=== PATIENT | male | born 1965 | race Caucasian/White ===

== ENCOUNTER 2021-01-28 07:56 | Emergency (ER) | payer BC ==
[~2021-01-28] VITALS: Ht 170.2 cm; Wt 65.8 kg
[~2021-01-28 07:56] MED LIST: ADVAIR HFA115 MCG/21 INH; NEXIUM40 MG PO; SINGULAIR 10 MG10 M1 PO
[2021-01-28] MEDS ORDERED: LISINOPRIL10 MG PO (08:55)
[2021-01-28 08:56] LABS: URINE BILIRUBIN NEGATIVE (Negative); URINE BLOOD NEGATIVE (Negative); URINE CLARITY CLEAR; URINE COLOR YELLOW; URINE GLUCOSE-RANDOM* NEGATIVE (Negative); URINE KETONES NEGATIVE (Negative); URINE LEUKOCYTES-REFLEX NEGATIVE (Negative); URINE NITRITE-REFLEX NEGATIVE (Negative); URINE PROTEIN (DIPSTICK) NEGATIVE (Negative); URINE SPECIFIC GRAVITY 1.015 (1.005-1.035); URINE UROBILINOGEN 0.2 E.U./dl (0.2-1.0)
[2021-01-28 09:00] LABS: RBC 4.72 mil/uL (4.50-6.00); WBC 17.1 thou/uL (4.0-11.0)
[2021-01-28 09:01] LABS: ABSOLUTE NEUTROPHILS 14.9 thou/uL (1.4-8.2); BASOPHILS 0.2 % (0.0-2.0); HEMATOCRIT 42.7 % (42.0-52.0); LYMPHOCYTES 3.4 % (24.0-44.0); MCH 29.6 pg (26.0-34.0); MCHC 32.7 g/dL (28.0-37.0); MCV 90.5 fL (80.0-100.0); MONOCYTES 9.3 % (1.0-8.0); PLATELET COUNT 280 thou/uL (150-400); POLYS 87.1 % (36.0-66.0); RDW 13.6 % (10.5-14.5)
[2021-01-28 09:03] LABS: CALCIUM 9.9 mg/dL (8.5-10.1); CREATININE 1.4 mg/dL (0.7-1.3)
[2021-01-28 09:09] LABS: ALBUMIN 4.4 g/dL (3.4-5.0); DIRECT BILIRUBIN 0.2 mg/dL (<0.1-0.2); TOTAL BILIRUBIN 0.6 mg/dL (0.2-1.0); TOTAL PROTEIN 7.6 g/dL (6.4-8.2)
[2021-01-28 10:11] VITALS: BP 117/71
[2021-01-28] MEDS ORDERED: ZOFRAN ODT4 MG PO (10:18)
[2021-01-28] MEDS ORDERED: CIPROFLOXACIN500 M1 PO (10:18)
[2021-01-28] MEDS ORDERED: FLAGYL500 M1 PO (10:18)
== END 2021-01-28 10:40 | disposition home or self-care (01) ==
LOC: ER 07:56
PROVIDERS: Emergency Medicine
DX: K52.9 Noninfective gastroenteritis and colitis, unspecified (principal); N17.9 Acute kidney failure, unspecified; J45.909 Unspecified asthma, uncomplicated; F17.210 Nicotine dependence, cigarettes, uncomplicated; K21.9 Gastro-esophageal reflux disease without esophagitis; Z91.010 Allergy to peanuts